=== PATIENT | female | born 1965 | race Caucasian/White ===

== ENCOUNTER 2018-09-27 18:23 | Inpatient (IN) | payer OTHER ==
--- NOTE | 2018-09-27 19:01 | ED ---
General Adult HPI - General Chief complaint: Psychiatric Symptoms Stated complaint: Petition Time Seen by Provider: 09/27/18 18:34 Source: patient, RN notes reviewed, old records reviewed Mode of arrival: ambulatory Limitations: no limitations - History of Present Illness Initial comments: 53-year-old female presents for psychiatric evaluation. Patient has been petitioned by [facility]. Patient was [place] on the freeway, holding a frying grant attempting to distract the "pulse from a microwave transmitter". She states that she has had psychiatric clearance in the past. She denies any diagnosis of psychiatric illness. She states she was coming from [place] and she would like to file reported. She is paranoid, delusional, unable to make sense of the reason why she is in the emergency department. - Related Data Home Medications Medication Instructions Recorded Confirmed Propranolol (Unknown Dose) 1 tab PO DIRECTED 09/27/18 09/27/18 Allergies Allergy/AdvReac Type Severity Reaction Status Date / Time No Known Allergies Allergy Verified 09/27/18 20:06 Review of Systems ROS Statement: Those systems with pertinent positive or pertinent negative responses have been documented in the HPI. ROS Other: All systems not noted in ROS Statement are negative. Past Medical History Past Medical History: Hearing Disorder / Deafness History of Any Multi-Drug Resistant Organisms: None Reported Past Surgical History: Unable to Obtain Past Psychological History: Unable to Obtain Smoking Status: Never smoker Past Alcohol Use History: None Reported Past Drug Use History: None Reported General Exam Limitations: no limitations General appearance: alert, in no apparent distress Course Vital Signs 09/27/18 09/28/18 09/28/18 18:29 01:58 04:38 Temperature 98.0 F 97.8 F Pulse Rate 108 H 94 Respiratory 18 18 17 Rate Blood Pressure 117/80 131/89 O2 Sat by Pulse 98 99 Oximetry Medical Decision Making - Medical Decision Making 53-year-old female presenting with her no delusions. She is evaluated by EPS in the emergency department. She was cleared medically. Observed for a period time awaiting placement. There was some question this patient was a [place] citizen or [place] citizen. She does have a [place] passport. She will be admitted to this institution for further psychiatric evaluation and treatment. - Lab Data Lab Results 09/27/18 Range/Units 23:11 Urine Opiates Screen Not Detected (NotDetected) Ur Oxycodone Screen Not Detected (NotDetected) Urine Methadone Screen Not Detected (NotDetected) Ur Propoxyphene Screen Not Detected (NotDetected) Ur Barbiturates Screen Not Detected (NotDetected) U Tricyclic Antidepress Not Detected (NotDetected) Ur Phencyclidine Scrn Not Detected (NotDetected) Ur Amphetamines Screen Not Detected (NotDetected) U Methamphetamines Scrn Not Detected (NotDetected) U Benzodiazepines Scrn Not Detected (NotDetected) Urine Cocaine Screen Not Detected (NotDetected) U Marijuana (THC) Screen Not Detected (NotDetected) Disposition Clinical Impression: Psychosis, Acute psychosis Disposition: ADMITTED IP TO THIS [facility] Condition: Stable Is patient prescribed a controlled substance at d/c from ED?: No Referrals: None,Stated [Primary Care Provider] - 1-2 days Time of Disposition: 12:38
[2018-09-28 00:43] LABS: Amphetamine Screen,Urine Not Detected (NotDetected); Barbiturate Screen,Urine Not Detected (NotDetected); Benzodiazepines Screen,Urine Not Detected (NotDetected); Cocaine Screen,Urine Not Detected (NotDetected); Methadone Screen, Urine Not Detected (NotDetected); Opiate Screen,Urine Not Detected (NotDetected); Oxycodone Screen, Urine Not Detected (NotDetected); Phencyclidine Screen,Urine Not Detected (NotDetected); Tricyclic Antidepressant,Urine Not Detected (NotDetected); Urn Cannabinoid Scrn Not Detected (NotDetected)
[2018-09-28] MEDS ORDERED: ZIPRASIDONE 20 MG VIAL IM PRN (12:59)
[2018-09-28] MEDS ORDERED: LORazepam 1 MG TAB PO PRN (12:59)
[2018-09-28] MEDS ORDERED: MAG HYDROX/AL HYDROX/SIMETH 30 ML CUP PO PRN (12:59)
[2018-09-28] MEDS ORDERED: ACETAMINOPHEN TAB 325 MG TAB PO PRN (12:59)
[2018-09-28] MEDS ORDERED: MAGNESIUM HYDROXIDE 2,400 MG/10 ML CUP PO PRN (12:59)
[2018-09-28] MEDS ORDERED: LORazepam 2 MG/ML INJ IM PRN (13:02)
[2018-09-28] MEDS ORDERED: LORazepam 2 MG/ML INJ IM STA (13:33)
--- NOTE | 2018-09-28 18:56 | P.MDCNMH ---
History of Present Illness H&P Date: 09/28/18 Chief Complaint: medical management 53-year-old female with PMH of deafness presents the ED for psychiatric evaluation. She was petitioned by [facility]'s department. as per ED note, patient was [place] on the freeway, holding a frying grant attempting to distract the "pulse from a microwave transmitter". patient has the petition during the entire history and physical. Patient is attempting to explain what has been misconstrued on the petition and that she is not truly delusional. She continues to reiterate that she was blocking her right ear to prevent the burning of electrodes. 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 Patient is also attempting to discredit the other points that were made on her petition including the thought that she believes that people are out to get her hand that she is hearing voices.she denies any headache, lower segment edema, nausea, vomiting, fever, cough, chest pain, shortness of breath, changes in urination or bowel habits. No changes in appetite or weight. Review of Systems All systems: negative Past Medical History Past Medical History: Hearing Disorder / Deafness History of Any Multi-Drug Resistant Organisms: None Reported Past Surgical History: Unable to Obtain Past Psychological History: Unable to Obtain Smoking Status: Never smoker Past Alcohol Use History: None Reported Past Drug Use History: None Reported Medications and Allergies Home Medications Medication Instructions Recorded Confirmed Type Propranolol [Inderal] 10 mg PO DAILY 09/28/18 09/28/18 History Allergies Allergy/AdvReac Type Severity Reaction Status Date / Time No Known Allergies Allergy Verified 09/27/18 20:06 Physical Exam Vitals: Vital Signs Temp Pulse Pulse Resp BP BP Pulse Ox 09/28/18 14:51 97.2 F L 104 H 18 125/77 09/28/18 13:05 102 H 18 126/76 98 09/28/18 04:38 17 09/28/18 01:58 97.8 F 94 18 131/89 99 General: [non toxic], [no distress], [appears at stated age] Derm: [warm], [dry] Head: [atraumatic], [normocephalic], [symmetric] Eyes: [EOMI], [no lid lag], [anicteric sclera] Mouth: [no lip lesion], [mucus membranes moist] Cardiovascular: [S1S2 reg], [no murmur], [positive DP pulse bilateral] Lungs: [CTA bilateral], [no rhonchi, no rales] , [no accessory muscle use] Abdominal: [soft], [ nontender to palpation], [no guarding], [no appreciable organomegaly] Ext: [no gross muscle atrophy], [no edema], [no contractures] Neuro: [ CN II-XI grossly intact], [no focal neuro deficits] Psych: [Alert], [oriented], [appropriate affect] Cranial Nerve Examination - Cranial Nerves Cranial Nerve II- Optic: Intact Cranial Nerve III- Oculomotor: Intact Cranial Nerve IV- Trochlear: Intact Cranial Nerve V- Trigeminal: Intact Cranial Nerve - Abducens: Intact Cranial Nerve VII- Facial: Intact Cranial Nerve VIII- Auditory: Intact Cranial Nerve IX- Glossopharyngeal: Intact Cranial Nerve X- Vagus: Intact Cranial Nerve XI- Accessory: Intact Cranial Nerve XII- Hypoglossal: Intact Assessment and Plan Assessment: Assessment and Plan 1. Tachycardia 2. Hearing disorder 3. Delusional thoughts 1. Patient tachycardic to 108. Appears to be sinus rhythm. UDS is negative. Unknown etiology, could be a reason why she is on propranolol. Follow EKG. Will continue to monitor vital signs. 2. Secondary to urine infection as a child. Follow-up in the outpatient setting. 3. Management as per psychiatry. Thank you for this consult. Please call with any additional questions or concerns.
[2018-09-29 08:27] LABS: Basophils # (A) 0.1 k/uL (0-0.2); Basophils % (A) 1 %; Eosinophils # (A) 0.2 k/uL (0-0.7); Eosinophils % (A) 4 %; HCT 42.5 % (34.0-46.0); HGB 14.1 gm/dL (11.4-16.0); Lymphocytes # (A) 1.8 k/uL (1.0-4.8); Lymphocytes % (A) 32 %; MCH 29.1 pg (25.0-35.0); MCHC 33.1 g/dL (31.0-37.0); Mean Platelet Volume 6.9; Monocytes # (A) 0.3 k/uL (0-1.0); Monocytes % (A) 5 %; Neutrophils % (A) 55 %; Platelet Count 298 k/uL (150-450); RBC 4.83 m/uL (3.80-5.40); RDW 12.9 % (11.5-15.5); WBC 5.5 k/uL (3.8-10.6)
[2018-09-29 08:40] LABS: ALT 26 U/L (9-52); AST 20 U/L (14-36); Albumin 4.1 g/dL (3.5-5.0); Alkaline Phosphatase 57 U/L (38-126); Anion Gap 5 mmol/L; Blood Urea Nitrogen 15 mg/dL (7-17); Calcium 9.5 mg/dL (8.4-10.2); Carbon Dioxide 27 mmol/L (22-30); Chloride 105 mmol/L (98-107); Cholesterol 235 mg/dL (<200); Glucose 93 mg/dL (74-99); HDL Cholesterol 83 mg/dL (40-60); LDL Cholesterol,Calculated 137 mg/dL (0-99); Potassium 4.3 mmol/L (3.5-5.1); Sodium 137 mmol/L (137-145); Total Bilirubin 0.8 mg/dL (0.2-1.3); Total Protein 6.9 g/dL (6.3-8.2); Triglycerides 73 mg/dL (<150)
[2018-09-29] MEDS: NICOTINE 14MG/24HR PATCH TRANSDERM SCH (09:22)
--- NOTE | 2018-09-29 13:45 | P.HP ---
Psychiatric H&P - . H&P Date: 09/29/18 History & Physical: Allergies Allergy/AdvReac Type Severity Reaction Status Date / Time No Known Allergies Allergy Verified 09/27/18 20:06 Vital Signs Temp 97.7 F 09/29/18 07:21 Pulse 82 09/29/18 07:21 Resp 12 09/29/18 07:21 BP 87/56 09/29/18 07:21 Pulse Ox 98 09/28/18 13:05 Laboratory Last Values WBC 5.5 k/uL (3.8-10.6) 09/29/18 08:12 RBC 4.83 m/uL (3.80-5.40) 09/29/18 08:12 Hgb 14.1 gm/dL (11.4-16.0) 09/29/18 08:12 Hct 42.5 % (34.0-46.0) 09/29/18 08:12 MCV 88.0 fL (80.0-100.0) 09/29/18 08:12 MCH 29.1 pg (25.0-35.0) 09/29/18 08:12 MCHC 33.1 g/dL (31.0-37.0) 09/29/18 08:12 RDW 12.9 % (11.5-15.5) 09/29/18 08:12 Plt Count 298 k/uL (150-450) 09/29/18 08:12 Neutrophils % 55 % 09/29/18 08:12 Lymphocytes % 32 % 09/29/18 08:12 Monocytes % 5 % 09/29/18 08:12 Eosinophils % 4 % 09/29/18 08:12 Basophils % 1 % 09/29/18 08:12 Neutrophils # 3.0 k/uL (1.3-7.7) 09/29/18 08:12 Lymphocytes # 1.8 k/uL (1.0-4.8) 09/29/18 08:12 Monocytes # 0.3 k/uL (0-1.0) 09/29/18 08:12 Eosinophils # 0.2 k/uL (0-0.7) 09/29/18 08:12 Basophils # 0.1 k/uL (0-0.2) 09/29/18 08:12 Sodium 137 mmol/L (137-145) 09/29/18 08:12 Potassium 4.3 mmol/L (3.5-5.1) 09/29/18 08:12 Chloride 105 mmol/L (98-107) 09/29/18 08:12 Carbon Dioxide 27 mmol/L (22-30) 09/29/18 08:12 Anion Gap 5 mmol/L 09/29/18 08:12 BUN 15 mg/dL (7-17) 09/29/18 08:12 Creatinine 0.67 mg/dL (0.52-1.04) 09/29/18 08:12 Est GFR (CKD-EPI)AfAm >90 (>60 ml/min/1.73 sqM) 09/29/18 08:12 Est GFR (CKD-EPI)NonAf >90 (>60 ml/min/1.73 sqM) 09/29/18 08:12 Glucose 93 mg/dL (74-99) 09/29/18 08:12 Calcium 9.5 mg/dL (8.4-10.2) 09/29/18 08:12 Total Bilirubin 0.8 mg/dL (0.2-1.3) 09/29/18 08:12 AST 20 U/L (14-36) 09/29/18 08:12 ALT 26 U/L (9-52) 09/29/18 08:12 Alkaline Phosphatase 57 U/L (38-126) 09/29/18 08:12 Total Protein 6.9 g/dL (6.3-8.2) 09/29/18 08:12 Albumin 4.1 g/dL (3.5-5.0) 09/29/18 08:12 Triglycerides 73 mg/dL (<150) 09/29/18 08:12 Cholesterol 235 mg/dL (<200) H 09/29/18 08:12 LDL Cholesterol, Calc 137 mg/dL (0-99) H 09/29/18 08:12 HDL Cholesterol 83 mg/dL (40-60) H 09/29/18 08:12 TSH 2.950 mIU/L (0.465-4.680) 09/29/18 08:12 Urine Opiates Screen Not Detected (NotDetected) 09/27/18 23:11 Ur Oxycodone Screen Not Detected (NotDetected) 09/27/18 23:11 Urine Methadone Screen Not Detected (NotDetected) 09/27/18 23:11 Ur Propoxyphene Screen Not Detected (NotDetected) 09/27/18 23:11 Ur Barbiturates Screen Not Detected (NotDetected) 09/27/18 23:11 U Tricyclic Antidepress Not Detected (NotDetected) 09/27/18 23:11 Ur Phencyclidine Scrn Not Detected (NotDetected) 09/27/18 23:11 Ur Amphetamines Screen Not Detected (NotDetected) 09/27/18 23:11 U Methamphetamines Scrn Not Detected (NotDetected) 09/27/18 23:11 U Benzodiazepines Scrn Not Detected (NotDetected) 09/27/18 23:11 Urine Cocaine Screen Not Detected (NotDetected) 09/27/18 23:11 U Marijuana (THC) Screen Not Detected (NotDetected) 09/27/18 23:11 Assessment and Plan Assessment: Chief Complaint: Apparent wellness check 53-year-old female with PMH of deafness presents the ED for psychiatric evalua tion. She was petitioned by [facility]'s department. as per ED note, patient was found on the freeway, holding a frying grant attempting to distract the "pulse from a microwave transmitter". patient has the petition during the entire history and physical. Patient is attempting to explain what has been misconstrued on the petition and that she is not truly delusional. She continues to reiterate that she was blocking her right ear to prevent the burning of electrodes. 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 Patient is also attempting to discredit the other points that were made on her petition including the thought that she believes that people are out to get her hand that she is hearing voices.she denies any headache, lower segment edema, nausea, vomiting, fever, cough, chest pain, shortness of breath, changes in urination or bowel habits. No changes in appetite or weight. pt presents to with [facility] with c/o needing a mental health evaluation. Pt states she had a sharp pain in the side of her head, states she pulled off the road and the officer was there. Pt denies any suicidal thoughts nor homicidal thoughts. She was brought in by the [employer] dept and state police. Pt is a [place] citizen who was in [place] in a car pulled along the side of a road. She was acting and talking strange. The police brought her to the hospital and petitioned her. Pt has times of talking word salad and other times can be coherant. She says she has been deaf since childhood and has cochlear implants in bilateral ears. She said that she is having pain from them and they are going to explode in her ear. Jay tells tales of secrets tht he can not tell because of agent orange and people trying to [place] her like they did to her friend in [place]. Pt admits she does not explain thing in the right was due to her being deaf. Past Medical History Past Medical History: Hearing Disorder / Deafness History of Any Multi-Drug Resistant Organisms: None Reported Past Surgical History: Unable to Obtain Past Psychological History: Unable to Obtain Smoking Status: Never smoker Past Alcohol Use History: None Reported Past Drug Use History: None Reported Medications and Allergies Home Medications Medication Instructions Recorded Confirmed Type Propranolol [Inderal] 10 mg PO DAILY 09/28/18 09/28/18 History Allergies Allergy/AdvReac Type Severity Reaction Status Date / Time No Known Allergies Allergy Verified 09/27/18 20:06 Musculoskeletal Examination - Abnormal/Involuntary Movements: [none Strength: [greater than antigravity (greater than/equal to 3/5) in all extre mities:] Muscle Tone: [no impairment] Gait: [grossly normal] Station: [grossly normal Hearing: Bilateral cochlear implants with hearing disorder Mental Status Examination - this is a 53-year-old female who is from [facility]. She was visiting going up to [place] to a of [place] [address] [place] and she just passed [address] and felt a to pain in her right ear and had stopped alongside the road and had a frying grant that she uses often to defer a the high frequency sounds that are admitted from the cell towers. She was dressed in hospital gown with initially having immense stuttering when she was trying to tell a story to me. She was able to calm down and finished the rest of the mental status exam without any hesitation or thought blocking. When she had stopped alongside the road in a manner pickup stopped ask her she needed help and had difficulty pronouncing her words i.e. stuttering and he called for help from the police. They went to the scene and she again had stuttering and difficulty stating what was happening to her. She stated that she had difficulty number years ago was placed on a court order for a year took medications which she felt didn't help. It appeared to be in [facility] and will try to get further information. General Appearance: [ casual, appears stated age Speech/Language: [ rambled, hesitant, halting, expressive, soft Attitude/Behavior: [cooperative, guarded Mood: [euthymic, anxious (stuttering), Affect: [ lively, blunted constricted, very expressive affect] Orientation: [time, person, place situation] Thought Content: [wnl Risk Factors: [Denies suicidal (ideations, plan), and/or Homicidal (ideations, plan), other] Perception: [wnl, denies hallucinations (auditory, visual, tactile), other] Thought Processes: [ concrete, circumstantial, tangential Concentration/Attention Span: [wnl] [Per observation and interview with the patient] Recent Memory: [wnl 3 out of 3 in 3 minutes] Remote Memory: [wnl [past events, as related history] Intelligence: [ average] [based on history, based on vocabulary, syntax, grammar, and content] Judgement: [fair] [per patient's behavior/history of present illness] Insight: [ fair] [understanding severity of illness/history of present illness] Admitting Diagnosis: [Adjustment disorder with mixed emotions: Bilateral cochlear implants with expressive aphasia i.e. stuttering] Patient Strengths - Personal Skills: [x] Steady employment/financial stability: [x] Housing stability: [x] Able to vocalize needs: [x] Patient Limitations: [lack of social supports] Initial Plan of Care: [Keya Baires was admitted on a formal voluntary and allowed to sign in on her own volition which she did. She'll be evaluated by medicine, psychiatry, nursing staff, social work and occupational therapy. She'll be placed on 15 minute checks usual protocol for the mental health unit. She will have a thorough biopsychosocial evaluation to further understand her dynamics and probable diagnosis.] Estimated Length of Stay: [3 days] Initial Discharge Plan: [home Prognosis: [good] Justification for Inpatient Hospitalization - [ anxiety, depression resulting in significant loss of functioning.] [Emotional or behavioral conditions and complications requiring 24 hour medical and nursing care.] [Need for special drug therapy, or other therapeutic program requiring continuous hospitalization.] (1) Adjustment disorder with anxious mood Current Visit: Yes Status: Acute Code(s): F43.22 - ADJUSTMENT DISORDER WITH ANXIETY SNOMED Code(s): 31310559 (2) Panic attack due to exceptional stress Current Visit: Yes Status: Acute Code(s): F41.0 - PANIC DISORDER [EPISODIC PAROXYSMAL ANXIETY]; F43.0 - ACUTE STRESS REACTION SNOMED Code(s): 74241623 Time with Patient: Greater than 30
[2018-09-29 17:16] LABS: Hemoglobin A1C 5.3 % (4.0-6.0)
[2018-09-30] MEDS: NICOTINE 14MG/24HR PATCH TRANSDERM SCH (09:02)
--- NOTE | 2018-09-30 11:29 | P.PN ---
Subjective Progress Note Date: 09/30/18 Principal diagnosis: Acute psychosis 09/30/2018: Chart reviewed and discussed with nursing staff and detained this morning. Interview patient in office and discussed in detail that she tends to wander and her discussions and almost delusional and at times. Part of this may be part of a mild psychosis that has probably gone on for a period of time since she's had hospitalizations before. She agreed to take Risperdal and Lamictal at low dose. Objective - Vital Signs Vital signs: Vital Signs Temp 97.7 F 09/29/18 07:21 Pulse 82 09/29/18 07:21 Resp 12 09/29/18 07:21 BP 87/56 09/29/18 07:21 Pulse Ox 98 09/28/18 13:05 - Labs CBC & Chem 7: 09/29/18 08:12 09/29/18 08:12 Assessment and Plan Assessment: Chief Complaint: Apparent wellness check 53-year-old female with PMH of deafness presents the ED for psychiatric evaluation. She was petitioned by [facility]'s department. as per ED note, patient was found on the freeway, holding a frying grant attempting to distract the "pulse from a microwave transmitter". patient has the petition during the entire history and physical. Patient is attempting to explain what has been misconstrued on the petition and that she is not truly delusional. She continues to reiterate that she was blocking her right ear to prevent the burning of electrodes. 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 Patient is also attempting to discredit the other points that were made on her petition including the thought that she believes that people are out to get her hand that she is hearing voices.she denies any headache, lower segment edema, nausea, vomiting, fever, cough, chest pain, shortness of breath, changes in urination or bowel habits. No changes in appetite or weight. pt presents to with [facility] with c/o needing a mental health evaluation. Pt states she had a sharp pain in the side of her head, states she pulled off the road and the officer was there. Pt denies any suicidal thoughts nor homicidal thoughts. She was brought in by the the medical center dept and state police. Pt is a [place] citizen who was in [place] in a car pulled along the side of a road. She was acting and talking strange. The police brought her to the hospital and petitioned her. Pt has times of talking word salad and other times can be coherant. She says she has been deaf since childhood and has cochlear implants in bilateral ears. She said that she is having pain from them and they are going to explode in her ear. Jay tells tales of secrets tht he can not tell because of agent orange and people trying to [place] her like they did to her friend in [place]. Pt admits she does not explain thing in the right was due to her being deaf. Mental Status Examination - this is a 53-year-old female who is from [facility]. She was visiting going up to [place] to a of is [address] [place] north and she just passed [place] and felt a to pain in her right ear and had stopped alongside the road and had a frying grant that she uses often to defer a the high frequency sounds that are admitted from the cell towers. She was dressed in hospital gown with initially having immense stuttering when she was trying to tell a story to me. She was able to calm down and finished the rest of the mental status exam without any hesitation or thought blocking. When she had stopped alongside the road in a manner pickup stopped ask her she needed help and had difficulty pronouncing her words i.e. stuttering and he called for help from the police. They went to the scene and she again had stuttering and difficulty stating what was happening to her. She stated that she had difficulty number years ago was placed on a court order for a year took medications which she felt didn't help. It appeared to be in [facility] and will try to get further information. General Appearance: [ casual, appears stated age Speech/Language: [ rambled, hesitant, halting, expressive, soft Attitude/Behavior: [cooperative, guarded Mood: [euthymic, anxious (stuttering), Affect: [ lively, blunted constricted, very expressive affect] Orientation: [time, person, place situation] Thought Content: [wnl Risk Factors: [Denies suicidal (ideations, plan), and/or Homicidal (ideations, plan), other] Perception: [wnl, denies hallucinations (auditory, visual, tactile), other] Thought Processes: [ concrete, circumstantial, tangential Concentration/Attention Span: [wnl] [Per observation and interview with the p atient] Recent Memory: [wnl 3 out of 3 in 3 minutes] Remote Memory: [wnl [past events, as related history] Intelligence: [ average] [based on history, based on vocabulary, syntax, grammar, and content] Judgement: [fair] [per patient's behavior/history of present illness] Insight: [ fair] [understanding severity of illness/history of present illness] Admitting Diagnosis: [Adjustment disorder with mixed emotions: Bilateral cochlear implants with expressive aphasia i.e. stuttering; acute psychosis] Initial Plan of Care: [Keya Baires was admitted on a formal voluntary and allowed to sign in on her own volition which she did. She'll be evaluated by medicine, psychiatry, nursing staff, social work and occupational therapy. She'll be placed on 15 minute checks usual protocol for the mental health unit. She will have a thorough biopsychosocial evaluation to further understand her dynamics and probable diagnosis.] Estimated Length of Stay: [2 days] I (1) Adjustment disorder with anxious mood Current Visit: Yes Status: Acute Code(s): F43.22 - ADJUSTMENT DISORDER WITH ANXIETY SNOMED Code(s): 90322264 (2) Panic attack due to exceptional stress Current Visit: Yes Status: Acute Code(s): F41.0 - PANIC DISORDER [EPISODIC PAROXYSMAL ANXIETY]; F43.0 - ACUTE STRESS REACTION SNOMED Code(s): 26132452 Plan: Risperdal 0.25 mg by mouth daily at bedtime her mild acute psychosis and Lamictal 25 mg by mouth daily at bedtime for pressured speech. She remains on 15 minute checks and encouraged to go to groups and interact positively with peers Time with Patient: Greater than 30
[2018-09-30] MEDS: lamoTRIgine 25 MG TAB PO SCH (20:47)
[2018-09-30] MEDS: risperiDONE 0.25 MG TAB PO SCH (20:47)
[2018-10-01 06:30] VITALS: RESP 16
[2018-10-01] MEDS: NICOTINE 14MG/24HR PATCH TRANSDERM SCH (07:41)
--- NOTE | 2018-10-01 11:52 | P.PN ---
Subjective Progress Note Date: 10/01/18 Principal diagnosis: Acute psychosis 09/30/2018: Chart reviewed and discussed with nursing staff and detained this morning. Interview patient in office and discussed in detail that she tends to wander and her discussions and almost delusional and at times. Part of this may be part of a mild psychosis that has probably gone on for a period of time since she's had hospitalizations before. She agreed to take Risperdal and Lamictal at low dose. 10/01/2018: chert reviewed, discussed with team and possible discahrge tomorrow. client took medications last night. Objective - Vital Signs Vital signs: Vital Signs Temp 97.9 F 10/01/18 06:03 Pulse 68 10/01/18 06:03 Resp 16 10/01/18 06:03 BP 100/65 10/01/18 06:03 Pulse Ox 98 09/28/18 13:05 - Labs CBC & Chem 7: 09/29/18 08:12 09/29/18 08:12 Assessment and Plan Assessment: Chief Complaint: Apparent wellness check 53-year-old female with PMH of deafness presents the ED for psychiatric evaluation. She was petitioned by [facility]'s department. as per ED note, patient was [place] on the freeway, holding a frying grant attempting to distract the "pulse from a microwave transmitter". patient has the petition during the entire history and physical. Patient is attempting to explain what has been misconstrued on the petition and that she is not truly delusional. She continues to reiterate that she was blocking her right ear to prevent the burning of electrodes. 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 Patient is also attempting to discredit the other points that were made on her petition including the thought that she believes that people are out to get her hand that she is hearing voices.she denies any headache, lower segment edema, nausea, vomiting, fever, cough, chest pain, shortness of breath, changes in urination or bowel habits. No changes in appetite or weight. pt presents to with [facility] with c/o needing a mental health evaluation. Pt states she had a sharp pain in the side of her head, states she pulled off the road and the officer was there. Pt denies any suicidal thoughts nor homicidal thoughts. She was brought in by the [facility] dept and state police. Pt is a [place] citizen who was in [place] in a car pulled along the side of a road. She was acting and talking strange. The police brought her to the hospital and pet itioned her. Pt has times of talking word salad and other times can be coherant. She says she has been deaf since childhood and has cochlear implants in bilateral ears. She said that she is having pain from them and they are going to explode in her ear. Jay tells tales of [employer] secrets tht he can not tell because of agent orange and people trying to [place] [place] her like they did to her friend in [place]. Pt admits she does not explain thing in the right was due to her being deaf. Mental Status Examination - this is a 53-year-old female who is from [facility]. She was visiting going up to [place] to a of [place] [address] [place] and she just passed [address] and felt a to pain in her right ear and had stopped alongside the road and had a frying grant that she uses often to defer a the high frequency sounds that are admitted from the cell towers. She was dressed in hospital gown with initially having immense stuttering when she was trying to tell a story to me. She was able to calm down and finished the rest of the mental status exam without any hesitation or thought blocking. When she had stopped alongside the road in a manner pickup stopped ask her she needed help and had difficulty pronouncing her words i.e. stuttering and he called for help from the police. They went to the scene and she again had stuttering and difficulty stating what was happening to her. She stated that she had difficulty number years ago was placed on a court order for a year took medications which she felt didn't help. It appeared to be in [facility] and will try to get further information. General Appearance: [ casual, appears stated age Speech/Language: [ rambled, hesitant, halting, expressive, soft Attitude/Behavior: [cooperative, guarded Mood: [euthymic, anxious (stuttering), Affect: [ lively, blunted constricted, very expressive affect] Orientation: [time, person, place situation] Thought Content: [wnl Risk Factors: [Denies suicidal (ideations, plan), and/or Homicidal (ideations, plan), other] Perception: [wnl, denies hallucinations (auditory, visual, tactile), other] Thought Processes: [ concrete, circumstantial, tangential Concentration/Attention Span: [wnl] [Per observation and interview with the patient] Recent Memory: [wnl 3 out of 3 in 3 minutes] Remote Memory: [wnl [past events, as related history] Intelligence: [ average] [based on history, based on vocabulary, syntax, gr ammar, and content] Judgement: [fair] [per patient's behavior/history of present illness] Insight: [ fair] [understanding severity of illness/history of present illness] Admitting Diagnosis: [Adjustment disorder with mixed emotions: Bilateral cochlear implants with expressive aphasia i.e. stuttering; acute psychosis] Initial Plan of Care: [Keya Baires was admitted on a formal voluntary and allowed to sign in on her own volition which she did. She'll be evaluated by medicine, psychiatry, nursing staff, social work and occupational therapy. She'll be placed on 15 minute checks usual protocol for the mental health unit. She will have a thorough biopsychosocial evaluation to further understand her dynamics and probable diagnosis.] Estimated Length of Stay: [1 days] I (1) Adjustment disorder with anxious mood Current Visit: Yes Status: Acute Code(s): F43.22 - ADJUSTMENT DISORDER WITH ANXIETY SNOMED Code(s): 93142024 (2) Panic attack due to exceptional stress Current Visit: Yes Status: Acute Code(s): F41.0 - PANIC DISORDER [EPISODIC PAROXYSMAL ANXIETY]; F43.0 - ACUTE STRESS REACTION SNOMED Code(s): 74056280 Plan: Risperdal 0.25 mg by mouth daily at bedtime her mild acute psychosis and Lamictal 25 mg by mouth daily at bedtime for pressured speech. She remains on 15 minute checks and encouraged to go to groups and interact positively with peers 10/01/2018: discussed medications without difficulty continue 15 minute checks Time with Patient: Less than 30
[2018-10-01] MEDS: risperiDONE 0.25 MG TAB PO SCH (20:20)
[2018-10-01] MEDS: lamoTRIgine 25 MG TAB PO SCH (20:20)
[2018-10-02 01:39] VITALS: BP 106/73; PULSE 90; TEMP 98.2
[2018-10-02] MEDS: NICOTINE 14MG/24HR PATCH TRANSDERM SCH (10:48)
--- NOTE | 2018-10-02 11:30 | P.DS ---
Providers Date of admission: 09/28/18 12:48 Expected date of discharge: 10/02/18 Attending physician: León Rose DO Consults: 09/28/18 12:59 Consult Physician Routine Consulting Provider: Scott Mercer Consult Reason/Comments: medicl management Do you want consulting provider notified?: Already Contacted Primary care physician: Stated None - Discharge Diagnosis(es) (1) Adjustment disorder with anxious mood Allergies Allergy/AdvReac Type Severity Reaction Status Date / Time No Known Allergies Allergy Verified 09/27/18 20:06 Vital Signs Temp 97.7 F 09/29/18 07:21 Pulse 82 09/29/18 07:21 Resp 12 09/29/18 07:21 BP 87/56 09/29/18 07:21 Pulse Ox 98 09/28/18 13:05 Laboratory Last Values WBC 5.5 k/uL (3.8-10.6) 09/29/18 08:12 RBC 4.83 m/uL (3.80-5.40) 09/29/18 08:12 Hgb 14.1 gm/dL (11.4-16.0) 09/29/18 08:12 Hct 42.5 % (34.0-46.0) 09/29/18 08:12 MCV 88.0 fL (80.0-100.0) 09/29/18 08:12 MCH 29.1 pg (25.0-35.0) 09/29/18 08:12 MCHC 33.1 g/dL (31.0-37.0) 09/29/18 08:12 RDW 12.9 % (11.5-15.5) 09/29/18 08:12 Plt Count 298 k/uL (150-450) 09/29/18 08:12 Neutrophils % 55 % 09/29/18 08:12 Lymphocytes % 32 % 09/29/18 08:12 Monocytes % 5 % 09/29/18 08:12 Eosinophils % 4 % 09/29/18 08:12 Basophils % 1 % 09/29/18 08:12 Neutrophils # 3.0 k/uL (1.3-7.7) 09/29/18 08:12 Lymphocytes # 1.8 k/uL (1.0-4.8) 09/29/18 08:12 Monocytes # 0.3 k/uL (0-1.0) 09/29/18 08:12 Eosinophils # 0.2 k/uL (0-0.7) 09/29/18 08:12 Basophils # 0.1 k/uL (0-0.2) 09/29/18 08:12 Sodium 137 mmol/L (137-145) 09/29/18 08:12 Potassium 4.3 mmol/L (3.5-5.1) 09/29/18 08:12 Chloride 105 mmol/L (98-107) 09/29/18 08:12 Carbon Dioxide 27 mmol/L (22-30) 09/29/18 08:12 Anion Gap 5 mmol/L 09/29/18 08:12 BUN 15 mg/dL (7-17) 09/29/18 08:12 Creatinine 0.67 mg/dL (0.52-1.04) 09/29/18 08:12 Est GFR (CKD-EPI)AfAm >90 (>60 ml/min/1.73 sqM) 09/29/18 08:12 Est GFR (CKD-EPI)NonAf >90 (>60 ml/min/1.73 sqM) 09/29/18 08:12 Glucose 93 mg/dL (74-99) 09/29/18 08:12 Calcium 9.5 mg/dL (8.4-10.2) 09/29/18 08:12 Total Bilirubin 0.8 mg/dL (0.2-1.3) 09/29/18 08:12 AST 20 U/L (14-36) 09/29/18 08:12 ALT 26 U/L (9-52) 09/29/18 08:12 Alkaline Phosphatase 57 U/L (38-126) 09/29/18 08:12 Total Protein 6.9 g/dL (6.3-8.2) 09/29/18 08:12 Albumin 4.1 g/dL (3.5-5.0) 09/29/18 08:12 Triglycerides 73 mg/dL (<150) 09/29/18 08:12 Cholesterol 235 mg/dL (<200) H 09/29/18 08:12 LDL Cholesterol, Calc 137 mg/dL (0-99) H 09/29/18 08:12 HDL Cholesterol 83 mg/dL (40-60) H 09/29/18 08:12 TSH 2.950 mIU/L (0.465-4.680) 09/29/18 08:12 Urine Opiates Screen Not Detected (NotDetected) 09/27/18 23:11 Ur Oxycodone Screen Not Detected (NotDetected) 09/27/18 23:11 Urine Methadone Screen Not Detected (NotDetected) 09/27/18 23:11 Ur Propoxyphene Screen Not Detected (NotDetected) 09/27/18 23:11 Ur Barbiturates Screen Not Detected (NotDetected) 09/27/18 23:11 U Tricyclic Antidepress Not Detected (NotDetected) 09/27/18 23:11 Ur Phencyclidine Scrn Not Detected (NotDetected) 09/27/18 23:11 Ur Amphetamines Screen Not Detected (NotDetected) 09/27/18 23:11 U Methamphetamines Scrn Not Detected (NotDetected) 09/27/18 23:11 U Benzodiazepines Scrn Not Detected (NotDetected) 09/27/18 23:11 Urine Cocaine Screen Not Detected (NotDetected) 09/27/18 23:11 U Marijuana (THC) Screen Not Detected (NotDetected) 09/27/18 23:11 Assessment and Plan Assessment: Chief Complaint: Apparent wellness check 53-year-old female with PMH of deafness presents the ED for psychiatric evaluation. She was petitioned by [facility]'s department. as per ED note, patient was found on the freeway, holding a frying grant attempting to distract the "pulse from a microwave transmitter". patient has the petition during the entire history and physical. Patient is attempting to explain what has been misconstrued on the petition and that she is not truly delusional. She continues to reiterate that she was blocking her right ear to prevent the burning of electrodes. 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 Patient is also attempting to discredit the other points that were made on her petition including the thought that she believes that people are out to get her hand that she is hearing voices.she denies any headache, lower segment edema, nausea, vomiting, fever, cough, chest pain, shortness of breath, changes in urination or bowel habits. No changes in appetite or weight. pt presents to with [facility] with c/o needing a mental health evaluation. Pt states she had a sharp pain in the side of her head, states she pulled off the road and the officer was there. Pt denies any suicidal thoughts nor homicidal thoughts. She was brought in by the [facility] dept and state police. Pt is a [place] who was in [place] in a car pulled along the side of a road. She was acting and talking strange. The police brought her to the hospital and petitioned her. Pt has times of talking word salad and other times can be coherant. She says she has been deaf since childhood and has cochlear implants in bilateral ears. She said that she is having pain from them and they are going to explode in her ear. Jay tells tales of [email or web address] secrets tht he can not tell because of agent orange and people trying to [place] Act her like they did to her friend in [place]. Pt admits she does not explain thing in the right was due to her being deaf. Past Medical History Past Medical History: Hearing Disorder / Deafness History of Any Multi-Drug Resistant Organisms: None Reported Past Surgical History: Unable to Obtain Past Psychological History: Unable to Obtain Smoking Status: Never smoker Past Alcohol Use History: None Reported Past Drug Use History: None Reported Medications and Allergies Home Medications Medication Instructions Recorded Confirmed Type Propranolol [Inderal] 10 mg PO DAILY 09/28/18 09/28/18 History Allergies Allergy/AdvReac Type Severity Reaction Status Date / Time No Known Allergies Allergy Verified 09/27/18 20:06 Musculoskeletal Examination - Abnormal/Involuntary Movements: [none Strength: [greater than antigravity (greater than/equal to 3/5) in all extremities:] Muscle Tone: [no impairment] Gait: [grossly normal] Station: [grossly normal Hearing: Bilateral cochlear implants with hearing disorder Mental Status Examination - this is a 53-year-old female who is from [facility]. She was visiting going up to [place] to a of [place] [address] [place] and she just passed [address] and felt a to pain in her right ear and had stopped alongside the road and had a frying grant that she uses often to defer a the high frequency sounds that are admitted from the cell towers. She was dressed in hospital gown with initially having immense stuttering when she was trying to tell a story to me. She was able to calm down and finished the rest of the mental status exam without any hesitation or thought blocking. When she had stopped alongside the road in a manner pickup stopped ask her she needed help and had difficulty pronouncing her words i.e. stuttering and he called for help from the police. They went to the scene and she again had stuttering and difficulty stating what was happening to her. She stated that she had difficulty number years ago was placed on a court order for a year took medications which she felt didn't help. It appeared to be in [facility] and will try to get further information. General Appearance: [ casual, appears stated age Speech/Language: [ rambled, hesitant, halting, expressive, soft Attitude/Behavior: [cooperative, guarded Mood: [euthymic, anxious (stuttering), Affect: [ lively, blunted constricted, very expressive affect] Orientation: [time, person, place situation] Thought Content: [wnl Risk Factors: [Denies suicidal (ideations, plan), and/or Homicidal (ideations, plan), other] Perception: [wnl, denies hallucinations (auditory, visual, tactile), other] Thought Processes: [ concrete, circumstantial, tangential Concentration/Attention Span: [wnl] [Per observation and interview with the patient] Recent Memory: [wnl 3 out of 3 in 3 minutes] Remote Memory: [wnl [past events, as related history] Intelligence: [ average] [based on history, based on vocabulary, syntax, grammar, and content] Judgement: [fair] [per patient's behavior/history of present illness] Insight: [ fair] [understanding severity of illness/history of present illness] Current Visit: Yes Status: Acute Priority: Medium (2) Panic attack due to exceptional stress Current Visit: Yes Status: Acute Priority: Medium Hospital Course: Plan of Care: [Keya Baires was admitted on a formal voluntary and allowed to sign in on her own volition which she did. She'll be evaluated by medicine, psychiatry, nursing staff, social work and occupational therapy. She'll be placed on 15 minute checks usual protocol for the mental health unit. She will have a thorough biopsychosocial evaluation to further understand her dynamics and probable diagnosis.] Risperdal 0.25 mg by mouth daily at bedtime her mild acute psychosis and Lamictal 25 mg by mouth daily at bedtime for pressured speech. She remains on 15 minute checks and encouraged to go to groups and interact positively with peers 10/01/2018: discussed medications without difficulty continue 15 minute checks Mental status examination today at discharge: The patient presents alert, pleasant, and cooperative. There calmly seated without any agitated behavior. [She] reports that [her] mood is good. Affect is congruent and euthymic. [She] deny having any suicidal or homicidal ideation intent or plan. [She] denies any auditory or visual hallucinations. There is no evidence of any delusional thought content. [Her] thought process is linear and goal-directed. [Her] speech is fluent and nonpressured. [Her] memory and concentration is grossly intact for the purposes of this session. Patient Condition at Discharge: Stable Plan - Discharge Summary Discharge Rx Participant: Yes New Discharge Prescriptions: New lamoTRIgine [LaMICtal] 25 mg PO 2100 30 Days #30 tab risperiDONE [RisperDAL] 0.25 mg PO HS 30 Days #30 tab Discontinued Propranolol [Inderal] 10 mg PO DAILY Discharge Medication List lamoTRIgine [LaMICtal] 25 mg PO 2100 30 Days #30 tab 10/02/18 [Rx] risperiDONE [RisperDAL] 0.25 mg PO HS 30 Days #30 tab 10/02/18 [Rx] Follow up Appointment(s)/Referral(s): None,Stated [Primary Care Provider] - 1-2 days Discharge Disposition: HOME SELF-CARE
== END 2018-10-02 15:14 | disposition home or self-care (01) | DRG 882 ==
LOC: EC 18:23 → 3MHU 09-28 12:48
PROVIDERS: ADMIT Psychiatry & Neurology Psychiatry; ATTEND Psychiatry & Neurology Psychiatry
DX: F43.23 Adjustment disorder with mixed anxiety and depressed mood (principal); F23 Brief psychotic disorder; F43.0 Acute stress reaction; F80.81 Childhood onset fluency disorder; H91.90 Unspecified hearing loss, unspecified ear; Z79.899 Other long term (current) drug therapy
CPT/HCPCS: 80053; 80061; 80306; 83036; 84443; 85025; 96372; 99285